=== PATIENT | female | born 1990 | race Caucasian/White ===

== ENCOUNTER 2018-02-12 10:00 | Inpatient (IN) | payer MEDICAID ==
[2018-02-12 11:24] LABS: ADD UMIC NO; UR ASCORBIC ACID NEGATIVE (NEGATIVE); UR BILIRUBIN (Dip) NEGATIVE (NEGATIVE); UR BLOOD (Dip) NEGATIVE (NEGATIVE); UR CLARITY CLEAR (CLEAR); UR COLOR STRAW (YELLOW); UR GLUCOSE (Dip) NEGATIVE (NEGATIVE); UR KETONES (Dip) NEGATIVE (NEGATIVE); UR LEUKOCYTE ESTERASE (Dip) NEGATIVE Leu/ul (NEGATIVE); UR NITRITE (Dip) NEGATIVE (NEGATIVE); UR SPECIFIC GRAVITY (Dip) 1.006 (1.003-1.030); UR TOTAL PROTEIN (Dip) NEGATIVE (NEGATIVE); UR UROBILINOGEN (Dip) NEGATIVE (NEGATIVE)
[2018-02-12] MEDS: BETAMET NA PHOS/AC(6 MG/ML) 5ML INJ IM (13:56)
[2018-02-12] MEDS: MAGNESIUM SULFATE 4 GM/100 ML 100 ML IVPB (14:23)
[2018-02-12] MEDS: MAGNESIUM SULFATE 20 GM/500 ML 500 ML IV (14:24)
[2018-02-12] MEDS: LACTATED RINGER'S 1,000 ML IV (14:58)
[2018-02-12] MEDS ORDERED: ACETAMINOPHEN 325 MG TAB PO (15:00)
[2018-02-12] MEDS ORDERED: DOCUSATE SODIUM 100 MG CAP PO (15:00)
[2018-02-12 15:02] LABS: ADD MAN DIFF? NO
[2018-02-12 15:07] LABS: BASOPHIL # 0.1 10^3/ul (0.0-0.1); BASOPHILS % 0.5 % (0.0-2.0); EOSINOPHILS % 0.4 % (0.0-7.0); HEMATOCRIT 34.8 % (37.0-47.0); HEMOGLOBIN 11.5 g/dl (12.0-16.0); LYMPHOCYTES # 2.1 10^3/ul (0.8-2.9); LYMPHOCYTES % 18.9 % (15.0-51.0); MEAN CORPUSCULAR HEMOGLOBIN 30.3 pg (29.0-33.0); MEAN CORPUSCULAR VOLUME 91.6 fl (82.0-101.0); MEAN PLATELET VOLUME 10.6 fl (7.4-10.4); MONOCYTE # 0.6 10^3/ul (0.3-0.9); MONOCYTES % 5.4 % (0.0-11.0); NEUTROPHIL # 8.4 10^3/ul (1.6-7.5); NEUTROPHILS % 74.4 % (39.0-77.0); PLATELET COUNT 306 10^3/UL (140-415); RED CELL DISTRIBUTION WIDTH 13.2 % (11.5-14.5)
[2018-02-12 15:07] LABS: WHITE BLOOD COUNT 11.3 10^3/ul (4.8-10.8)
[2018-02-12 15:22] LABS: ALANINE AMINOTRANSFERASE 21 IU/L (13-69); ALBUMIN 3.8 g/dl (3.3-4.9); ALBUMIN/GLOBULIN RATIO 1.15; ALKALINE PHOSPHATASE 73 IU/L (42-121); ANION GAP 14 (8-16); ASPARTATE AMINO TRANSFERASE 18 IU/L (15-46); BILIRUBIN,INDIRECT 0.2 mg/dl (0-1.1); BILIRUBIN,TOTAL 0.2 mg/dl (0.2-1.3); BLOOD UREA NITROGEN 4 mg/dl (7-20); CALCIUM 9.3 mg/dl (8.4-10.2); CARBON DIOXIDE 25 mmol/L (21-31); CHLORIDE 107 mmol/L (97-110); GLUCOSE 80 mg/dl (70-220); POTASSIUM 3.7 mmol/L (3.5-5.1); SODIUM 142 mmol/L (135-144); TOTAL PROTEIN 7.1 g/dl (6.1-8.1)
[2018-02-13] MEDS: MAGNESIUM SULFATE 20 GM/500 ML 500 ML IV ×3 (00:26→19:20)
[2018-02-13] MEDS: LACTATED RINGER'S 1,000 ML IV ×2 (00:26→14:04)
[2018-02-13 01:11] LABS: MAGNESIUM 5.2 mg/dl (1.7-2.5)
[2018-02-13 08:41] LABS: MAGNESIUM 5.2 mg/dl (1.7-2.5)
[2018-02-13] MEDS ORDERED: FERROUS SULFATE (EC) 325 MG TAB PO (09:00)
[2018-02-13] MEDS ORDERED: PRENATAL VITAMIN PO (09:00)
[2018-02-13] MEDS: PRENATAL VITAMIN PO (09:01)
[2018-02-13] MEDS: FERROUS SULFATE (EC) 325 MG TAB PO (09:02)
[2018-02-13] MEDS: DOCUSATE SODIUM 100 MG CAP PO (09:02)
[2018-02-13 12:34] LABS: MAGNESIUM 5.4 mg/dl (1.7-2.5)
[2018-02-13] MEDS: BETAMET NA PHOS/AC(6 MG/ML) 5ML INJ IM (14:03)
[2018-02-13 18:53] LABS: MAGNESIUM 5.1 mg/dl (1.7-2.5)
[2018-02-14 01:36] LABS: MAGNESIUM 5.3 mg/dl (1.7-2.5)
[2018-02-14] MEDS: LACTATED RINGER'S 1,000 ML IV ×2 (03:33→16:26)
[2018-02-14] MEDS: MAGNESIUM SULFATE 20 GM/500 ML 500 ML IV ×2 (04:52→16:00)
[2018-02-14 07:20] LABS: MAGNESIUM 5.3 mg/dl (1.7-2.5)
[2018-02-14] MEDS: DOCUSATE SODIUM 100 MG CAP PO (08:32)
[2018-02-14] MEDS: FERROUS SULFATE (EC) 325 MG TAB PO (08:33)
[2018-02-14] MEDS: PRENATAL VITAMIN PO (09:00)
[2018-02-14 12:47] LABS: MAGNESIUM 5.3 mg/dl (1.7-2.5)
[2018-02-14] MEDS: NIFEdipine 10 MG CAP PO ×2 (18:26→23:53)
[2018-02-15] MEDS: NIFEdipine 10 MG CAP PO ×3 (05:43→19:08)
[2018-02-15] MEDS: LACTATED RINGER'S 1,000 ML IV ×2 (05:46→19:12)
[2018-02-15] MEDS: DOCUSATE SODIUM 100 MG CAP PO (08:36)
[2018-02-15] MEDS: FERROUS SULFATE (EC) 325 MG TAB PO (08:36)
[2018-02-15] MEDS: PRENATAL VITAMIN PO (08:36)
[2018-02-16] MEDS: NIFEdipine 10 MG CAP PO ×5 (00:38→23:56)
[2018-02-16] MEDS: FERROUS SULFATE (EC) 325 MG TAB PO (08:52)
[2018-02-16] MEDS: PRENATAL VITAMIN PO (08:52)
[2018-02-16] MEDS: DOCUSATE SODIUM 100 MG CAP PO (08:52)
[2018-02-17] MEDS: NIFEdipine 10 MG CAP PO ×2 (05:37→11:56)
[2018-02-17] MEDS: PRENATAL VITAMIN PO (08:17)
[2018-02-17] MEDS: FERROUS SULFATE (EC) 325 MG TAB PO (08:17)
[2018-02-17] MEDS: DOCUSATE SODIUM 100 MG CAP PO (08:17)
== END 2018-02-17 16:00 | disposition home or self-care (01) | DRG 780 ==
LOC: OBT 10:00 → L-D 10:00 → OBT 12:41 → L-D 12:41 → PP1 13:20
DX: O47.02 False labor before 37 completed weeks of gestation, second trimester (principal); Z3A.25 25 weeks gestation of pregnancy
CPT/HCPCS: 76817; 80053; 81003; 83735; 85025; 87086

== ENCOUNTER 2018-04-17 08:34 | Outpatient (CLI) | payer OTHER, MEDICAID ==
[2018-04-17 09:56] LABS: ADD UMIC YES; UR ASCORBIC ACID NEGATIVE (NEGATIVE); UR BACTERIA FEW /HPF (NONE SEEN); UR BILIRUBIN (Dip) NEGATIVE (NEGATIVE); UR BLOOD (Dip) NEGATIVE (NEGATIVE); UR CLARITY SLIGHTLY CLOUDY (CLEAR); UR COLOR YELLOW (YELLOW); UR GLUCOSE (Dip) 1+ mg/dL (NEGATIVE); UR KETONES (Dip) NEGATIVE (NEGATIVE); UR LEUKOCYTE ESTERASE (Dip) 1+ Leu/ul (NEGATIVE); UR NITRITE (Dip) NEGATIVE (NEGATIVE); UR RBC 3 /HPF (0-5); UR SPECIFIC GRAVITY (Dip) 1.008 (1.003-1.030); UR SQUAMOUS EPITHELIAL CELL FEW /HPF (FEW); UR TOTAL PROTEIN (Dip) NEGATIVE (NEGATIVE); UR UROBILINOGEN (Dip) NEGATIVE (NEGATIVE); UR WBC 4 /HPF (0-5)
[2018-04-17] MEDS ORDERED: TERBUTALINE 1 ML (10:50)
[2018-04-17] MEDS: TERBUTALINE 1 MG/ML INJ SC (11:07)
[2018-04-17] MEDS: BETAMET NA PHOS/AC(6 MG/ML) 5ML INJ IM (11:07)
== END 2018-04-17 12:30 | disposition home or self-care (01) ==
LOC: OBT 08:34 → L-D 08:34 → OBT 12:30
DX: O60.03 Preterm labor without delivery, third trimester (principal); O26.873 Cervical shortening, third trimester; Z3A.34 34 weeks gestation of pregnancy
CPT/HCPCS: 76817; 76818; 81001; 87086

== ENCOUNTER 2018-04-18 11:21 | Outpatient (CLI) | payer OTHER ==
[2018-04-18] MEDS: BETAMET NA PHOS/AC(6 MG/ML) 5ML INJ IM (12:30)
== END 2018-04-18 13:20 | disposition home or self-care (01) ==
LOC: OBT 11:21 → L-D 11:21 → OBT 13:20
DX: O36.8930 Maternal care for other specified fetal problems, third trimester, not applicable or unspecified (principal); O62.9 Abnormality of forces of labor, unspecified; Z3A.34 34 weeks gestation of pregnancy
CPT/HCPCS: 59025; 96372

== ENCOUNTER 2018-04-30 12:03 | Observation (INO) | payer OTHER ==
[2018-04-30 17:44] LABS: RUPTURE FETAL MEMBRANES NEGATIVE (NEGATIVE)
[2018-04-30] MEDS ORDERED: MISOPROSTOL 200 MCG TAB PR (19:00)
[2018-04-30] MEDS ORDERED: OXYTOCIN 30 UNITS/LR 500 ML IV ×3 (19:00)
[2018-04-30] MEDS ORDERED: CARBOPROST 250 MCG INJ IM (19:00)
[2018-04-30] MEDS ORDERED: LIDOCAINE 1% (MPF) 30 ML INJ INJ (19:00)
[2018-04-30] MEDS ORDERED: METHYLERGONOVINE 0.2 MG INJ IM (19:00)
[2018-04-30 20:18] LABS: ADD MAN DIFF? NO
[2018-04-30 20:20] LABS: BASOPHIL # 0.1 10^3/ul (0.0-0.1); BASOPHILS % 0.5 % (0.0-2.0); EOSINOPHILS # 0.2 10^3/ul (0.0-0.5); EOSINOPHILS % 1.8 % (0.0-7.0); HEMOGLOBIN 12.8 g/dl (12.0-16.0); LYMPHOCYTES % 18.9 % (15.0-51.0); MEAN CORPUSCULAR HEMOGLOBIN 29.8 pg (29.0-33.0); MEAN CORPUSCULAR HGB CONC 33.7 g/dl (32.0-37.0); MEAN CORPUSCULAR VOLUME 88.6 fl (82.0-101.0); MONOCYTE # 0.7 10^3/ul (0.3-0.9); MONOCYTES % 6.3 % (0.0-11.0); NEUTROPHIL # 7.5 10^3/ul (1.6-7.5); NEUTROPHILS % 72.2 % (39.0-77.0); PLATELET COUNT 248 10^3/UL (140-415); RED BLOOD COUNT 4.29 10^6/ul (4.20-5.40); RED CELL DISTRIBUTION WIDTH 14.6 % (11.5-14.5)
[2018-04-30 20:20] LABS: WHITE BLOOD COUNT 10.4 10^3/ul (4.8-10.8)
[2018-04-30 20:39] LABS: INR 0.87; PROTIME 11.9 Sec (11.9-14.9); PT RATIO 0.9
[2018-04-30 20:40] LABS: PARTIAL THROMBOPLASTIN TIME 25.4 Sec (25.0-35.0)
[2018-04-30 20:42] LABS: GLUCOSE 95 mg/dl (70-220)
[2018-04-30] MEDS: LACTATED RINGER'S 1,000 ML IV* (20:56)
[2018-04-30 21:39] LABS: HEPATITIS B SURFACE ANTIGEN NEGATIVE (NEGATIVE)
[2018-04-30 21:47] LABS: RAPID PLASMA REAGIN NONREACTIVE (NR)
[2018-05-01] MEDS: LACTATED RINGER'S 1,000 ML IV* ×2 (03:53→12:14)
== END 2018-05-01 15:38 | disposition home or self-care (01) ==
LOC: OBT 12:03 → L-D 12:03 → OBT 18:35 → L-D 18:35
PROVIDERS: Obstetrics & Gynecology
DX: O47.03 False labor before 37 completed weeks of gestation, third trimester (principal); Z3A.36 36 weeks gestation of pregnancy
CPT/HCPCS: 36415; 76815; 76818; 82947; 82962; 84112; 85025; 85610; 85730; 86592; 86850; 86900; 86901; 87340; 96360; 96361; 99217

== ENCOUNTER 2018-05-02 08:57 | Inpatient (IN) | payer OTHER ==
[2018-05-02] MEDS ORDERED: DEXTROSE 5%-LR 1,000 ML IV (09:37)
[2018-05-02] MEDS ORDERED: BUTORPHANOL 2 MG INJ IV (10:00)
[2018-05-02] MEDS ORDERED: OXYTOCIN 30 UNITS/LR 500 ML IV ×3 (10:00)
[2018-05-02] MEDS ORDERED: LIDOCAINE 1% (MPF) 30 ML INJ INJ (10:00)
[2018-05-02] MEDS ORDERED: MISOPROSTOL 200 MCG TAB PR (10:00)
[2018-05-02 11:31] LABS: ADD MAN DIFF? NO
[2018-05-02] MEDS: LACTATED RINGER'S 1,000 ML IV ×3 (11:37→22:23)
[2018-05-02 11:41] LABS: WHITE BLOOD COUNT 10.6 10^3/ul (4.8-10.8)
[2018-05-02 11:41] LABS: BASOPHILS % 0.4 % (0.0-2.0); EOSINOPHILS # 0.1 10^3/ul (0.0-0.5); EOSINOPHILS % 0.9 % (0.0-7.0); HEMATOCRIT 39.3 % (37.0-47.0); HEMOGLOBIN 13.3 g/dl (12.0-16.0); LYMPHOCYTES # 2.1 10^3/ul (0.8-2.9); LYMPHOCYTES % 19.9 % (15.0-51.0); MEAN CORPUSCULAR HEMOGLOBIN 30.1 pg (29.0-33.0); MEAN CORPUSCULAR HGB CONC 33.8 g/dl (32.0-37.0); MEAN CORPUSCULAR VOLUME 88.9 fl (82.0-101.0); MEAN PLATELET VOLUME 11.1 fl (7.4-10.4); MONOCYTE # 0.8 10^3/ul (0.3-0.9); MONOCYTES % 7.7 % (0.0-11.0); NEUTROPHIL # 7.5 10^3/ul (1.6-7.5); NEUTROPHILS % 70.6 % (39.0-77.0); PLATELET COUNT 252 10^3/UL (140-415); RED BLOOD COUNT 4.42 10^6/ul (4.20-5.40); RED CELL DISTRIBUTION WIDTH 14.3 % (11.5-14.5)
[2018-05-02] MEDS: LACTATED RINGER'S 1,000 ML IV* (12:05)
[2018-05-02] MEDS ORDERED: FENTAnyl 2MCG/ML-ROPIV 0.2% 100 ML (12:10)
[2018-05-02 12:14] LABS: INR 0.85; PARTIAL THROMBOPLASTIN TIME 27.1 Sec (25.0-35.0); PROTIME 11.7 Sec (11.9-14.9); PT RATIO 0.9
[2018-05-02 12:26] LABS: GLUCOSE 95 mg/dl (70-220)
[2018-05-02] MEDS ORDERED: FENTAnyl 2MCG/ML-ROPIV 0.2% 100 ML BAG EPI (12:30)
[2018-05-02] MEDS ORDERED: NALOXONE (0.4 MG/ML) INJ IV ×2 (12:30→22:30)
[2018-05-02] MEDS: OXYTOCIN 30 UNITS/LR 500 ML IV (13:53)
[2018-05-02 15:13] LABS: RAPID PLASMA REAGIN NONREACTIVE (NR)
[2018-05-02 17:10] LABS: HEPATITIS B SURFACE ANTIGEN NEGATIVE (NEGATIVE)
[2018-05-02] MEDS ORDERED: AMPICILLIN 2 GM/NS (PMX) 100 ML (19:39)
[2018-05-02] MEDS: AMPICILLIN 2 GM/NS (PMX) 100 ML IVPB (19:45)
[2018-05-02] MEDS: ACETAMINOPHEN 325 MG TAB PO (20:06)
[2018-05-02] MEDS: GENTAMICIN 120 MG/NS (PMX) 100 ML IVPB (20:06)
[2018-05-02] MEDS: CITRIC ACID/SODIUM CITRATE 15 ML CUP PO ×2 (20:47→22:30)
[2018-05-02] MEDS ORDERED: CITRIC ACID/SODIUM CITRATE 15 ML CUP (20:47)
[2018-05-02] MEDS ORDERED: LIDOCAINE 100 MG SYRINGE (21:07)
[2018-05-02] MEDS ORDERED: ONDANSETRON 4 MG INJ (21:07)
[2018-05-02] MEDS ORDERED: LIDOCAINE 1% (MDV) 20 ML INJ (21:21)
[2018-05-02] MEDS ORDERED: morphine SULFATE/PF (10 MG/10 ML) INJ (21:21)
[2018-05-02] MEDS ORDERED: MIDAZOLAM 1 MG/ML 2 ML INJ (21:22)
[2018-05-02] MEDS ORDERED: OXYTOCIN 10 UNIT INJ ×2 (21:22→21:32)
[2018-05-02] MEDS ORDERED: KETOROLAC 30 MG INJ (21:55)
[2018-05-02] MEDS ORDERED: ACETAMINOPHEN 1000MG/100ML IV 100 ML (21:57)
[2018-05-02] MEDS ORDERED: ZOLPIDEM 5 MG TAB PO (22:30)
[2018-05-02] MEDS ORDERED: MIDAZOLAM 1 MG/ML 2 ML INJ IV (22:30)
[2018-05-02] MEDS ORDERED: HYDROmorphONE 0.5 MG/0.5 ML SYG IV ×2 (22:30)
[2018-05-02] MEDS ORDERED: ONDANSETRON 4 MG INJ IV ×2 (22:30)
[2018-05-02] MEDS ORDERED: NALBUPHINE HCL (10 MG/1 ML) INJ IV (22:30)
[2018-05-02] MEDS ORDERED: MEPERIDINE 25 MG INJ IV (22:30)
[2018-05-02] MEDS ORDERED: DIPHENHYDRAMINE 50 MG INJ IV ×2 (22:30)
[2018-05-02] MEDS ORDERED: LOPERAMIDE 2 MG CAP PO (23:00)
[2018-05-02] MEDS: LOPERAMIDE 2 MG CAP PO (23:20)
[2018-05-02] MEDS: CEFAZOLIN 2 GM/50 ML (PMX) 50 ML IVPB (23:46)
[2018-05-02] MEDS: METHYLERGONOVINE 0.2 MG INJ IM (23:47)
[2018-05-02] MEDS: CARBOPROST 250 MCG INJ IM (23:47)
[2018-05-03] MEDS: LACTATED RINGER'S 1,000 ML IV ×4 (01:18→23:21)
[2018-05-03] MEDS ORDERED: MISOPROSTOL 200 MCG TAB PR (01:30)
[2018-05-03] MEDS ORDERED: OXYTOCIN 30 UNITS/LR 500 ML IV (01:30)
[2018-05-03] MEDS ORDERED: METHYLERGONOVINE 0.2 MG INJ IM (01:30)
[2018-05-03] MEDS ORDERED: CARBOPROST 250 MCG INJ IM (01:30)
[2018-05-03] MEDS: OXYTOCIN 30 UNITS/LR 500 ML IV (03:11)
[2018-05-03] MEDS: PIPER-TAZO 3.375 GM IV (PMX) 100 ML IVPB ×4 (08:02→23:18)
[2018-05-03] MEDS: SENNA/DOCUSATE NA (8.6MG/50MG) TAB PO ×2 (08:09→21:00)
[2018-05-03 08:53] LABS: ADD MAN DIFF? NO
[2018-05-03 08:56] LABS: BASOPHIL # 0.1 10^3/ul (0.0-0.1); BASOPHILS % 0.4 % (0.0-2.0); EOSINOPHILS % 0.2 % (0.0-7.0); HEMATOCRIT 30.9 % (37.0-47.0); HEMOGLOBIN 10.5 g/dl (12.0-16.0); LYMPHOCYTES # 1.5 10^3/ul (0.8-2.9); LYMPHOCYTES % 11.5 % (15.0-51.0); MEAN CORPUSCULAR HEMOGLOBIN 30.3 pg (29.0-33.0); MEAN CORPUSCULAR VOLUME 89.3 fl (82.0-101.0); MEAN PLATELET VOLUME 11.1 fl (7.4-10.4); MONOCYTE # 0.8 10^3/ul (0.3-0.9); MONOCYTES % 6.1 % (0.0-11.0); NEUTROPHIL # 10.8 10^3/ul (1.6-7.5); NEUTROPHILS % 81.5 % (39.0-77.0); PLATELET COUNT 211 10^3/UL (140-415); RED BLOOD COUNT 3.46 10^6/ul (4.20-5.40); RED CELL DISTRIBUTION WIDTH 14.5 % (11.5-14.5)
[2018-05-03 08:56] LABS: WHITE BLOOD COUNT 13.2 10^3/ul (4.8-10.8)
[2018-05-03] MEDS: KETOROLAC 30 MG INJ IV ×2 (15:01→21:12)
[2018-05-03] MEDS: IBUPROFEN 800 MG TAB PO (22:00)
[2018-05-03] MEDS: LANOLIN 7 GM TUBE TOP (23:18)
[2018-05-04] MEDS: OXYCODONE/ACETAMINOPHEN (5/325) TAB PO ×2 (04:17→09:13)
[2018-05-04] MEDS: IBUPROFEN 800 MG TAB PO ×3 (06:00→22:18)
[2018-05-04] MEDS: PIPER-TAZO 3.375 GM IV (PMX) 100 ML IVPB ×3 (06:20→18:01)
[2018-05-04] MEDS: SENNA/DOCUSATE NA (8.6MG/50MG) TAB PO ×2 (09:12→20:41)
[2018-05-04 10:31] LABS: ADD MAN DIFF? NO
[2018-05-04 10:47] LABS: WHITE BLOOD COUNT 13.5 10^3/ul (4.8-10.8)
[2018-05-04 10:47] LABS: BASOPHIL # 0.1 10^3/ul (0.0-0.1); BASOPHILS % 0.4 % (0.0-2.0); EOSINOPHILS # 0.1 10^3/ul (0.0-0.5); EOSINOPHILS % 0.7 % (0.0-7.0); HEMOGLOBIN 8.8 g/dl (12.0-16.0); MEAN CORPUSCULAR HEMOGLOBIN 29.7 pg (29.0-33.0); MEAN CORPUSCULAR HGB CONC 32.6 g/dl (32.0-37.0); MEAN CORPUSCULAR VOLUME 91.2 fl (82.0-101.0); MEAN PLATELET VOLUME 11.2 fl (7.4-10.4); MONOCYTE # 0.7 10^3/ul (0.3-0.9); MONOCYTES % 5.1 % (0.0-11.0); NEUTROPHIL # 10.6 10^3/ul (1.6-7.5); NEUTROPHILS % 78.3 % (39.0-77.0); PLATELET COUNT 233 10^3/UL (140-415); RED BLOOD COUNT 2.96 10^6/ul (4.20-5.40); RED CELL DISTRIBUTION WIDTH 14.8 % (11.5-14.5)
[2018-05-04] MEDS: LACTATED RINGER'S 1,000 ML IV ×2 (20:00)
[2018-05-05] MEDS: PIPER-TAZO 3.375 GM IV (PMX) 100 ML IVPB ×3 (00:33→11:43)
[2018-05-05] MEDS: LACTATED RINGER'S 1,000 ML IV ×2 (01:18→11:42)
[2018-05-05] MEDS: IBUPROFEN 800 MG TAB PO ×2 (05:58→13:50)
[2018-05-05 06:31] LABS: ADD MAN DIFF? NO
[2018-05-05 06:37] LABS: WHITE BLOOD COUNT 11.2 10^3/ul (4.8-10.8)
[2018-05-05 06:37] LABS: BASOPHIL # 0.1 10^3/ul (0.0-0.1); BASOPHILS % 0.5 % (0.0-2.0); EOSINOPHILS # 0.3 10^3/ul (0.0-0.5); EOSINOPHILS % 2.3 % (0.0-7.0); HEMOGLOBIN 8.4 g/dl (12.0-16.0); LYMPHOCYTES # 1.9 10^3/ul (0.8-2.9); LYMPHOCYTES % 17.3 % (15.0-51.0); MEAN CORPUSCULAR HEMOGLOBIN 29.7 pg (29.0-33.0); MEAN CORPUSCULAR HGB CONC 32.3 g/dl (32.0-37.0); MEAN CORPUSCULAR VOLUME 91.9 fl (82.0-101.0); MEAN PLATELET VOLUME 10.6 fl (7.4-10.4); MONOCYTE # 0.5 10^3/ul (0.3-0.9); MONOCYTES % 4.1 % (0.0-11.0); NEUTROPHIL # 8.5 10^3/ul (1.6-7.5); NEUTROPHILS % 75.2 % (39.0-77.0); PLATELET COUNT 248 10^3/UL (140-415); RED BLOOD COUNT 2.83 10^6/ul (4.20-5.40); RED CELL DISTRIBUTION WIDTH 14.6 % (11.5-14.5)
[2018-05-05] MEDS: SENNA/DOCUSATE NA (8.6MG/50MG) TAB PO (08:47)
[2018-05-05] MEDS: DIPHTH/TET/ACEL PERTUSS (ADULT) 0.5 ML VIAL IM* (11:09)
== END 2018-05-05 16:40 | disposition home or self-care (01) | DRG 766 ==
LOC: OBT 08:57 → PP1 05-03 00:24 → L-D 09:00 → OBT 09:28 → L-D 09:31
PROVIDERS: Obstetrics & Gynecology
PROC: 10D00Z1 Extraction of Products of Conception, Low, Open Approach (ICD-10-PCS; principal; 2018-05-02 21:00)
PROC: 3E033VJ Introduction of Other Hormone into Peripheral Vein, Percutaneous Approach (ICD-10-PCS; 2018-05-02 21:00)
DX: O60.14X0 Preterm labor third trimester with preterm delivery third trimester, not applicable or unspecified (principal); O24.429 Gestational diabetes mellitus in childbirth, unspecified control; O62.1 Secondary uterine inertia; Z3A.36 36 weeks gestation of pregnancy; Z37.0 Single live birth
CPT/HCPCS: 62319; 76815; 76818; 82947; 82962; 85025; 85610; 85730; 86592; 86900; 86901; 87340; 88307; 90715; 99464